=== PATIENT | male | born 2000 | race African-American/Black ===

== ENCOUNTER 2020-12-06 21:20 | Emergency (ER) | payer OTHER ==
[2020-12-06 21:28] VITALS: TEMP 98.3; BMI 29.5
[2020-12-06] MEDS ORDERED: TETANUS AND DIPHTHERIA TOXOID 0.5 ML DISP.SYRIN IM ONE (21:56)
[2020-12-06] MEDS ORDERED: AMOX TR/POT CLAV 875MG/125MG TABLETS (FP) PO ONE (21:56)
[2020-12-06] MEDS ORDERED: AMOX TR/POT CLAV 875MG/125MG TABLETS (FP) ONE (22:31)
[2020-12-06 22:49] VITALS: BP 127/79; PULSE 90
== END 2020-12-06 22:48 | disposition home or self-care (01) ==
LOC: JERFT 21:20 → JER 21:20 → JERFT 22:48
PROC: 3E0234Z Introduction of Serum, Toxoid and Vaccine into Muscle, Percutaneous Approach (ICD-10-PCS; principal; 2020-12-06)
DX: S21.151A Open bite of right front wall of thorax without penetration into thoracic cavity, initial encounter (principal); S60.417A Abrasion of left little finger, initial encounter
CPT/HCPCS: 90471; 99284-25